=== PATIENT | male | born 1945 | race Caucasian/White ===

== ENCOUNTER → 2021-08-03 | Outpatient (CLI) | payer OTHER ==
[~2021-08-03] VITALS: Ht 182.9 cm; Wt 113.4 kg
[2021-08-03 12:03] VITALS: BP 131/70
[2021-08-03 14:45] VITALS: BP 144/63
[2021-08-03 15:05] VITALS: BP 141/68
[2021-08-03 15:20] VITALS: BP 136/64
== END | disposition home or self-care (01) ==
LOC: M.INT 11:00
DX: R18.8 Other ascites (principal); K72.10 Chronic hepatic failure without coma; K74.60 Unspecified cirrhosis of liver; I10 Essential (primary) hypertension; N40.0 Benign prostatic hyperplasia without lower urinary tract symptoms; Z98.890 Other specified postprocedural states; Z79.899 Other long term (current) drug therapy; Z90.49 Acquired absence of other specified parts of digestive tract; Z87.891 Personal history of nicotine dependence